=== PATIENT | male | born 1940 | race African-American/Black ===

== ENCOUNTER 2017-02-03 10:50 | Emergency (ER) | payer SELFPAY ==
[2017-02-03 10:52] VITALS: BP 247/120; PULSE 66; RESP 20; TEMP 97.3; O2SAT 97
[2017-02-03] MEDS ORDERED: ATEN50TA PO (11:21)
[2017-02-03] MEDS ORDERED: NOVO7030P2 SQ (11:21)
[2017-02-03] MEDS ORDERED: SIMV80TA PO (11:21)
[2017-02-03] MEDS ORDERED: HYDR25TA5 PO (11:21)
[2017-02-03] MEDS ORDERED: ENALAPRILAT 2.5 MG/2 ML VIAL IV PUSH ONE (12:00)
[2017-02-03 12:49] LABS: AUTOMATED NEUTROPHIL # 4.3 TH/MM3 (1.8-7.7); BASOPHIL % 0.3 % (0.0-2.0); EOSINOPHIL # 0.1 TH/MM3 (0-0.4); EOSINOPHIL % 1.9 % (0.0-4.0); HEMATOCRIT 42.5 % (39.0-51.0); HEMO FLAGS DIFF FINAL; LYMPH % 20.9 % (9.0-44.0); LYMPHOCYTE # 1.3 TH/MM3 (1.0-4.8); MEAN CELL VOLUME 88.1 FL (80.0-100.0); MEAN CORPUSCULAR HEMOGLOBIN 30.5 PG (27.0-34.0); MEAN CORPUSCULAR HGB CONC 34.7 % (32.0-36.0); NEUT % 68.9 % (16.0-70.0); PLATELET COUNT 183 TH/MM3 (150-450); RED BLOOD COUNT 4.83 MIL/MM3 (4.50-5.90); RED CELL DISTRIBUTION WIDTH 13.6 % (11.6-17.2); WHITE BLOOD COUNT 6.2 TH/MM3 (4.0-11.0)
[2017-02-03] MEDS ORDERED: LISI10TA3 PO (13:23)
--- NOTE | 2017-02-03 13:23 | PD ---
HPI Chief Complaint: Abnormal Results Time Seen by Provider: 11:18 Travel History International Travel<30 days: No Contact w/Intl Traveler<30days: No Traveled to known affect area: No History of Present Illness HPI This 76-year-old male presents to the emergency department referred from the [place] for high blood pressure. [facility] in his left eye for the past 2-3 weeks. He states he did see forms and shapes but can't see specific features of his left eye. He was seen the eye doctor within the dilated him, so they continued tobacco assigned suspected bleeding. Family masses could be related to his high blood pressure which is been elevated over the past week or 2. He took his blood pressure was markedly elevated so he was referred to the emergency department. He otherwise had been feeling generally well and healthy. He takes HCTZ 25 mg in the morning, and atenolol 50 mg at night. History Past Medical History Narrative Medical High blood pressure Diabetes Hyperlipidemia Social History Alcohol Use: No Tobacco Use: No Allergies-Medications (Allergen,Severity, Reaction): Coded Allergies: No Known Allergies (Unverified , 02/03/17) Reported Meds & Prescriptions Reported Meds & Active Scripts Active Reported Novolin 70-30 Inj (Insulin Human Isoph/Insulin Regular) 1,000 Unit/10 Ml Vial 20 Units SQ AC BREAKFAST Simvastatin 80 Mg Tab 80 Mg PO DAILY Hydrochlorothiazide 25 Mg Tab 25 Mg PO DAILY Atenolol 50 Mg Tab 50 Mg PO DAILY Review of Systems Except as stated in HPI: all other systems reviewed are Neg Physical Exam Narrative GENERAL: Well-appearing 68-year-old man, no acute distress. SKIN: Focused skin assessment warm/dry. HEAD: Atraumatic. Normocephalic. EYES: Pupils equal and round. No scleral icterus. No injection or drainage. Both eyes are pharmacologically dilated with minimal responsiveness. Right funduscopic exams unremarkable. Left funduscopic exam with cloudiness, unable to visualize fundus. Suspect vitreal hemorrhage. ENT: No nasal bleeding or discharge. Mucous membranes pink and moist. NECK: Trachea midline. No JVD. CARDIOVASCULAR: Regular rate and rhythm. No murmur appreciated. RESPIRATORY: No accessory muscle use. Clear to auscultation. Breath sounds equal bilaterally. GASTROINTESTINAL: Abdomen soft, non-tender, nondistended. Hepatic and splenic margins not palpable. MUSCULOSKELETAL: No obvious deformities. No edema. NEUROLOGICAL: Awake and alert. No obvious cranial nerve deficits. Motor grossly within normal limits. Normal speech. PSYCHIATRIC: Appropriate mood and affect; insight and judgment normal. Data Data Last Documented VS Vital Signs Date Time Temp Pulse Resp B/P Pulse Ox O2 Delivery O2 Flow Rate FiO2 02/03/17 10:52 97.3 66 20 247/120 97 Room Air Orders Complete Blood Count With Diff (02/03/17 11:41) Basic Metabolic Panel (Bmp) (02/03/17 11:41) Electrocardiogram (02/03/17 ) Enalaprilat Inj (Vasotec Inj) (02/03/17 12:00) Labs Laboratory Tests Test 02/03/17 12:15 White Blood Count 6.2 TH/MM3 Red Blood Count 4.83 MIL/MM3 Hemoglobin 14.7 GM/DL Hematocrit 42.5 % Mean Corpuscular Volume 88.1 FL Mean Corpuscular Hemoglobin 30.5 PG Mean Corpuscular Hemoglobin 34.7 % Concent Red Cell Distribution Width 13.6 % Platelet Count 183 TH/MM3 Mean Platelet Volume 10.7 FL Neutrophils (%) (Auto) 68.9 % Lymphocytes (%) (Auto) 20.9 % Monocytes (%) (Auto) 8.0 % Eosinophils (%) (Auto) 1.9 % Basophils (%) (Auto) 0.3 % Neutrophils # (Auto) 4.3 TH/MM3 Lymphocytes # (Auto) 1.3 TH/MM3 Monocytes # (Auto) 0.5 TH/MM3 Eosinophils # (Auto) 0.1 TH/MM3 Basophils # (Auto) 0.0 TH/MM3 CBC Comment DIFF FINAL Differential Comment Sodium Level 138 MEQ/L Potassium Level 4.0 MEQ/L Chloride Level 100 MEQ/L Carbon Dioxide Level 31.0 MEQ/L Anion Gap 7 MEQ/L Blood Urea Nitrogen 22 MG/DL Creatinine 1.81 MG/DL Estimat Glomerular Filtration 44 ML/MIN Rate Random Glucose 178 MG/DL Calcium Level 9.2 MG/DL [facility] Medical Decision Making Medical Screen Exam Complete: Yes Emergency Medical Condition: Yes Interpretation(s) My review of EKG: Sinus rhythm at a rate of 60, frequent ectopy, supraventricular junctional beats, 1 PVC. QTC is prolonged at 461. Lateral T wave inversions. No definite evidence of acute ischemia. LABS: CBC unremarkable BMP mildly elevated BUN and creatinine. Differential Diagnosis Hypertensive crisis, asymptomatic elevated high blood pressure, posterior reversible encephalopathy syndrome, other Narrative Course Medical decision making 76-year-old man, presents with elevated blood pressure. He appears have a vitreal hemorrhage in the left eye. No effect in his vision the right eye. Needs blood pressure control. Responded well to an HENRY inhibitor. Heart rate is low with just his atenolol. At this point we'll add lisinopril, [facility]. Diagnosis Primary Impression: Hypertension Additional Impression: Vitreous hemorrhage of left eye Additional Instructions: Follow-up with your electrification adviser in the next one to 2 days. Take lisinopril as prescribed. Follow-up with your [facility] doctor in the next one to 2 days. Return to the emergency department for any worsening vision symptoms, headache, confusion, weakness, or any other new or worsening symptoms. Med/Other Pt SpecificInfo: Prescription(s) given Scripts Lisinopril 10 Mg Tab10 Mg PO DAILY #30 TAB Ref 0 Prov:Enoc Kelly MD 02/03/17 Disposition: 01 DISCHARGE HOME Condition: Stable Enoc Kelly MD Feb 03, 2017 13:23
--- NOTE | 2017-02-03 14:40 | EKG ---
Date Performed: 02/03/2017 Time Performed: 12:24:25 PTAGE: 76 years EKG: Sinus rhythm WITH 2ND DEGREE AV BLOCK, MOBITZ TYPE I WITH OCCASIONAL VENTRICULAR PREMATURE COMPLEXES LEFT VENTRIC ULAR HYPERTROPHY AND ST-T CHANGE ABNORMAL ECG NO PREVIOUS TRACING DOCTOR: Norman Campos Interpretating Date/Time 02/03/2017 14:39:37
== END 2017-02-03 14:01 | disposition home or self-care (01) ==
LOC: NEPC 10:50
DX: I10 Essential (primary) hypertension (principal); H43.12 Vitreous hemorrhage, left eye; R94.31 Abnormal electrocardiogram [ECG] [EKG]; E11.9 Type 2 diabetes mellitus without complications; E78.5 Hyperlipidemia, unspecified
CPT/HCPCS: 80048; 85025; 93005; 96374

== ENCOUNTER 2018-01-29 13:10 | Emergency (ER) | payer OTHER ==
[2018-01-29] VITALS (8 sets, daily range): BP systolic 180–275; BP diastolic 81–138; PULSE 61–83; RESP 15–18; TEMP 98.6; O2SAT 99–100
[~2018-01-29] VITALS: Ht 190.5 cm; Wt 86.0 kg
[~2018-01-29 13:10] MED LIST: ATEN50TA PO; HYDR25TA5 PO; LISI10TA3 PO; NOVO7030P2 SQ; SIMV80TA PO
--- NOTE | 2018-01-29 15:01 | RADRPT ---
EXAM DATE/TIME: 01/29/2018 14:40 [facility] COMPARISON: No previous studies available for comparison. INDICATIONS : Hypertension. MEDICAL HISTORY : Hypertension. SURGICAL HISTORY : None. ENCOUNTER: Initial ACUITY: 1 day PAIN SCORE: 10/29 LOCATION: Bilateral chest FINDINGS: PA and lateral views of the chest demonstrate a normal-sized cardiac silhouette. There is no effusion , consolidation, or pneumothorax. The bones and soft tissues demonstrate no acute abnormality. There are degenerative changes of the thoracic spine. CONCLUSION: No acute cardiopulmonary abnormality is identified. Jayy Dow MD on January 29, 2018 at 14:57 Board Certified Radiologist. This report was verified electronically.
[2018-01-29] MEDS ORDERED: LABETALOL HCL 100 MG/20 ML VIAL IV PUSH ONE (15:15)
--- NOTE | 2018-01-29 15:15 | PD ---
HPI Chief Complaint: Hypertension Time Seen by Provider: 14:57 Travel History International Travel<30 days: No Contact w/Intl Traveler<30days: No Traveled to known affect area: No History of Present Illness HPI 77-year-old male presents to the emergency department for hypertension. [facility] physical was noted to have high blood pressure was sent to the emergency department. The patient is a poor historian. He denies any headache. No chest pain or shortness of breath. Denies any abdominal pain. No vomiting. Patient has a bag of his prescribed medications. It appears he is on nifedipine and atenolol for hypertension. He states he is unsure if he took these this morning, but thinks he did. Patient states he has been having elevated blood pressure for several years. He is here for similar reasons approximately one year ago. No exacerbating or alleviating factors. Moderate severity. PFSH Past Medical History Cancer: Yes (PROSTATE-SEEDS IMPLANTED) Cardiovascular Problems: Yes High Cholesterol: Yes Cerebrovascular Accident: Yes Diabetes: Yes Patient Takes Glucophage: Yes Diminished Hearing: No Hypertension: Yes ?: Not Past Surgical History Other Surgery: Yes (PROSTATE SEED IMPLANT) Social History Alcohol Use: No Tobacco Use: No Substance Use: No Allergies-Medications (Allergen,Severity, Reaction): Coded Allergies: No Known Allergies (Unverified Adverse Reaction, Unknown, 01/29/18) Reported Meds & Prescriptions Reported Meds & Active Scripts Active Lisinopril 10 Mg Tab 10 Mg PO DAILY Reported Nifedipine ER 24 HR (Nifedipine) 90 Mg Tab 90 Mg PO HS Omeprazole 20 Mg Tab 20 Mg PO DAILY Novolin 70-30 Inj (Insulin Human Isoph/Insulin Regular) 1,000 Unit/10 Ml Vial 20 Units SQ AC BREAKFAST Simvastatin 80 Mg Tab 80 Mg PO DAILY Hydrochlorothiazide 25 Mg Tab 25 Mg PO DAILY Atenolol 50 Mg Tab 50 Mg PO DAILY Review of Systems Except as stated in HPI: all other systems reviewed are Neg Physical Exam Narrative GENERAL: Well-nourished, well-developed male patient, afebrile. SKIN: Focused skin assessment warm/dry. HEAD: Normocephalic. Atraumatic. EYES: No scleral icterus. No injection or drainage. NECK: Supple, trachea midline. No JVD or lymphadenopathy. CARDIOVASCULAR: Regular rate and rhythm without murmurs, gallops, or rubs. RESPIRATORY: Breath sounds equal bilaterally. No accessory muscle use. Lung sounds are clear to auscultation. GASTROINTESTINAL: Abdomen soft, non-tender, nondistended. MUSCULOSKELETAL: No cyanosis, or edema. BACK: Nontender without obvious deformity. No CVA tenderness. Data Data Last Documented VS Vital Signs Date Time Temp Pulse Resp B/P (MAP) Pulse Ox O2 Delivery O2 Flow Rate FiO2 01/29/18 20:50 83 16 180/81 (114) 99 Room Air 01/29/18 13:53 98.6 Orders Orders Electrocardiogram (01/29/18 14:28) Complete Blood Count With Diff (01/29/18 14:28) Basic Metabolic Panel (Bmp) (01/29/18 14:28) Ckmb (Isoenzyme) Profile (01/29/18 14:28) Troponin I (01/29/18 14:28) Iv Access Insert/Monitor (01/29/18 14:28) Ecg Monitoring (01/29/18 14:28) Oxygen Administration (01/29/18 14:28) Oximetry (01/29/18 14:28) Prothrombin Time / Inr (Pt) (01/29/18 14:28) Chest, Pa & Lat (01/29/18 14:28) Labetalol Inj (Trandate Inj) (01/29/18 15:15) CKMB (01/29/18 16:35) CKMB% (01/29/18 16:35) Enalaprilat Inj (Vasotec Inj) (01/29/18 18:00) Nifedipine Sr (Procardia Xl) (01/29/18 19:00) Hydralazine Inj (Apresoline Inj) (01/29/18 20:30) Hydralazine (Apresoline) (01/29/18 21:00) Labs Laboratory Tests Test 01/29/18 15:20 01/29/18 16:35 White Blood Count 8.0 TH/MM3 Red Blood Count 4.46 MIL/MM3 Hemoglobin 14.0 GM/DL Hematocrit 40.9 % Mean Corpuscular Volume 91.7 FL Mean Corpuscular Hemoglobin 31.3 PG Mean Corpuscular Hemoglobin Concent 34.2 % Red Cell Distribution Width 13.7 % Platelet Count 180 TH/MM3 Mean Platelet Volume 10.5 FL Neutrophils (%) (Auto) 70.1 % Lymphocytes (%) (Auto) 19.5 % Monocytes (%) (Auto) 8.5 % Eosinophils (%) (Auto) 1.4 % Basophils (%) (Auto) 0.5 % Neutrophils # (Auto) 5.6 TH/MM3 Lymphocytes # (Auto) 1.6 TH/MM3 Monocytes # (Auto) 0.7 TH/MM3 Eosinophils # (Auto) 0.1 TH/MM3 Basophils # (Auto) 0.0 TH/MM3 CBC Comment DIFF FINAL Differential Comment Prothrombin Time 10.1 SEC Prothromb Time International Ratio 1.0 RATIO Blood Urea Nitrogen 22 MG/DL Creatinine 1.74 MG/DL Random Glucose 102 MG/DL Calcium Level 9.0 MG/DL Sodium Level 143 MEQ/L Potassium Level 3.7 MEQ/L Chloride Level 109 MEQ/L Carbon Dioxide Level 29.6 MEQ/L Anion Gap 4 MEQ/L Estimat Glomerular Filtration Rate 46 ML/MIN Total Creatine Kinase 192 U/L Creatine Kinase MB 2.0 NG/ML Troponin I LESS THAN 0.02 NG/ML MDM Medical Decision Making Medical Screen Exam Complete: Yes Emergency Medical Condition: Yes Medical Record Reviewed: Yes Interpretation(s) Last Impressions Chest X-Ray 01/29/18 1428 Signed Impressions: Service Date/Time: January 14:40 - CONCLUSION: No acute cardiopulmonary abnormality is identified. Jayy Dow MD Differential Diagnosis Hypertension versus electrolyte abnormality versus hypertensive emergency Narrative Course 77-year-old male presents to the emergency department for evaluation elevated blood pressure, sent by the [facility]. Patient denies any symptoms or complaints at this time. EKG shows sinus rhythm, heart rate 69. CBC, BMP, CK, troponin, PTT/ INR, chest x-ray were ordered in triage. Patient is given labetalol 10 mg IV. CBC shows no acute abnormality. BMP shows BUN 22, creatinine 1.74. CK is 192. Troponin is less than 0.02. Coags are unremarkable. Chest x-ray shows no acute cardiopulmonary abnormality. After labetalol 10 mg IV, the blood pressure did come down, but then went act up. He was then given Vasotec 2.5 mg IV. He was also given his dose of nifedipine 90 mg by mouth he takes is supposed to take at night. Patient is given hydralazine 10 mg IV. With the hydralazine, the blood pressure came down to 180/81. He is given hydralazine 10 mg by mouth. Patient remains asymptomatic throughout his stay. His daughter bedside states that he has been having elevated blood pressure for several years. Patient will be discharged prescription for hydralazine. His daughter is instructed to monitor his blood pressure and follow up at the [facility] for management. She verbalizes agreement. Diagnosis Primary Impression: Hypertension Qualified Codes: I10 - Essential (primary) hypertension Referrals: Primary Care Physician call for appointment Patient Instructions: Chronic Hypertension (ED), General Instructions Additional Instructions: Continue already prescribed hypertensive medications. Start Hydralazine as directed. Monitor blood pressure twice daily and follow-up with your primary care physician in the next 2-3 days. Return to the emergency department for any acute worsening of symptoms. Med/Other Pt SpecificInfo: Prescription(s) given Scripts Hydralazine HCl (Hydralazine HCl) 25 Mg Tablet 25 MG PO BID for Blood Pressure Management, #60 TAB 0 Refills Prov: Meg Harrell 01/29/18 Disposition: 01 DISCHARGE HOME Condition: Stable Meg Harrell Jan 29, 2018 15:15
[2018-01-29] MEDS ORDERED: OMEP20TA93 PO (15:38)
[2018-01-29] MEDS ORDERED: NIFE1TAB PO (15:38)
[2018-01-29 15:42] LABS: AUTOMATED NEUTROPHIL # 5.6 TH/MM3 (1.8-7.7); BASOPHIL % 0.5 % (0.0-2.0); EOSINOPHIL # 0.1 TH/MM3 (0-0.4); EOSINOPHIL % 1.4 % (0.0-4.0); HEMATOCRIT 40.9 % (39.0-51.0); LYMPH % 19.5 % (9.0-44.0); LYMPHOCYTE # 1.6 TH/MM3 (1.0-4.8); MEAN CELL VOLUME 91.7 FL (80.0-100.0); MEAN CORPUSCULAR HEMOGLOBIN 31.3 PG (27.0-34.0); MEAN CORPUSCULAR HGB CONC 34.2 % (32.0-36.0); MEAN PLATELET VOLUME 10.5 FL (7.0-11.0); MONO % 8.5 % (0.0-8.0); MONOCYTE # 0.7 TH/MM3 (0-0.9); NEUT % 70.1 % (16.0-70.0); PLATELET COUNT 180 TH/MM3 (150-450); RED BLOOD COUNT 4.46 MIL/MM3 (4.50-5.90); RED CELL DISTRIBUTION WIDTH 13.7 % (11.6-17.2)
[2018-01-29 15:49] LABS: PROTHROMBIN TIME - PATIENT 10.1 SEC (9.8-11.6)
[2018-01-29 17:13] LABS: BICARBONATE 29.6 MEQ/L (21.0-32.0); BLOOD UREA NITROGEN 22 MG/DL (7-18); CHLORIDE 109 MEQ/L (98-107); CREATININE 1.74 MG/DL (0.60-1.30); GLOMERULAR FILTRATION RATE 46 ML/MIN (>89); GLUCOSE,RANDOM 102 MG/DL (74-106); SODIUM (NA) 143 MEQ/L (136-145)
[2018-01-29 17:17] LABS: TROPONIN I LESS THAN 0.02 NG/ML (0.02-0.05)
[2018-01-29] MEDS ORDERED: ENALAPRILAT 2.5 MG/2 ML VIAL IV PUSH ONE (18:00)
[2018-01-29] MEDS ORDERED: NIFEdipine 90 MG SUSTAINED RELEASE TAB PO ONE (19:00)
[2018-01-29] MEDS ORDERED: hydrALAZINE HCL 20 MG/ML VIAL IV PUSH ONE (20:30)
[2018-01-29] MEDS ORDERED: HYDR-3799 PO (20:59)
[2018-01-29] MEDS ORDERED: hydrALAZINE HCL 10 MG TAB PO ONE (21:00)
--- NOTE | 2018-01-31 13:02 | EKG ---
Date Performed: 01/29/2018 Time Performed: 15:02:28 PTAGE: 77 years EKG: Sinus rhythm POSSIBLE LEFT ATRIAL ENLARGEMENT LEFT VENTRICULAR HYPERTROPHY AND ST-T CHANGE Minor variation on lef t ventricular strain pattern compared to prior tracing. ABNORMAL ECG PREVIOUS TRACING : 02/03/2017 12.24 DOCTOR: James Walsh Interpretating Date/Time 01/31/2018 13:01:24
== END 2018-01-29 21:24 | disposition home or self-care (01) ==
LOC: NEPC 13:10
DX: I10 Essential (primary) hypertension (principal); R94.31 Abnormal electrocardiogram [ECG] [EKG]; E78.00 Pure hypercholesterolemia, unspecified; E11.9 Type 2 diabetes mellitus without complications; Z86.73 Personal history of transient ischemic attack (TIA), and cerebral infarction without residual deficits; Z85.46 Personal history of malignant neoplasm of prostate; Z79.4 Long term (current) use of insulin; Z79.899 Other long term (current) drug therapy
CPT/HCPCS: 71046; 80048; 82550; 82552; 84484; 85025; 85610; 93005; 96374; 96375; 99285; J0360